=== PATIENT | male | born 1995 | race American Indian/Alaskan Native ===

== ENCOUNTER 2017-07-16 03:35 | Emergency (ER) | payer SELFPAY ==
[2017-07-16] MEDS ORDERED: Naproxen 250 MG Tab PO ONE (04:22)
[2017-07-16] MEDS ORDERED: Cyclobenzaprine 10 MG Tab PO ONE (04:22)
--- NOTE | 2017-07-16 05:20 | ER ---
DATE SEEN: 07/16/2017 CHIEF COMPLAINT: Back pain. HISTORY OF PRESENT ILLNESS: A 22-year-old male who was lifting a weight of unknown mass at work tonight and felt a sharp pain in the right side of the back. He continued working and the pain got worse. He rates it now about 6/10 with no radiation and he comes for evaluation. He has not taken anything to relieve the pain and there is no direct trauma. PAST MEDICAL HISTORY: Has been relatively healthy with no active medical problems. MEDICATIONS: Ibuprofen p.r.n. ALLERGIES: No known allergies. PHYSICAL EXAMINATION: GENERAL: He is well developed. VITAL SIGNS: Blood pressure is normal, pulse is 65, temperature 97.7. MUSCULOSKELETAL: No obvious swelling of the spine. No signs of trauma. He has full range of motion. There is paravertebral tenderness in the lumbar spine on the right. Straight leg raising test negative. NEUROLOGIC: He has no weakness on either side and his deep tendon reflexes are symmetric and brisk. IMPRESSION: Acute lumbar back pain, strain. PLAN: 1. Naproxen 500 mg b.i.d. 2. Flexeril 10 mg at night. 3. Restrictions were placed on his work not to lift, push, or pull more than 15 pounds and not to twist or bend until he is followed up on Monday. TIME SEEN: 0430 hours. /[id number] ELIDA/TRUONG
[2017-07-16 05:21] VITALS: BP 116/74
== END 2017-07-16 04:41 | disposition home or self-care (01) ==
LOC: FB.ED 03:35
DX: S39.012A Strain of muscle, fascia and tendon of lower back, initial encounter (principal); X50.9XXA Other and unspecified overexertion or strenuous movements or postures, initial encounter
CPT/HCPCS: 99000; 99283; A9270

== ENCOUNTER 2017-10-30 00:15 | Emergency (ER) | payer SELFPAY ==
--- NOTE | 2017-10-30 01:02 | EDM.PDOC ---
ED HPI GENERAL MEDICAL PROBLEM - General Stated Complaint: THROWING UP BLOOD Time Seen by Provider: 10/30/17 00:25 Source of Information: Reports: Patient History Limitations: Reports: No Limitations - History of Present Illness INITIAL COMMENTS - FREE TEXT/NARRATIVE: c/o N/V pt ate hamburger at 7p, went to bed at 10p, awoke 11:10p with slight N, had V in bathroom, thought there was blood no pain or nausea now has EGD x several without a dx is anxious with OCD traits does need to work in AM K a little low 2y ago, I offered to repeat his labs and he declined, stating he need to get sleep to get to work in the morning pt informed that he had no PUD, just some minor throat irritation PE neg, there was mucus with a few flecks of RBC in a cup - Related Data Allergies Allergy/AdvReac Type Severity Reaction Status Date / Time No Known Allergies Allergy Verified 05/20/16 22:47 Home Meds: Home Meds Ibuprofen [Ibuprofen] 600 mg PO ASDIRECTED 05/20/16 [History] Past Medical History - Past Health History Medical/Surgical History: Denies Medical/Surgical History Cardiovascular History: Reports: Other (See Below) Other Cardiovascular History: seen for palpations about 2 months ago Musculoskeletal History: Reports: Arthritis Neurological History: Reports: Migraines Dermatologic History: Reports: Eczema Other Dermatologic History: questionable eczema antecubital bilateral - Past Surgical History Musculoskeletal Surgical History: Reports: Other (See Below) Other Musculoskeletal Surgeries/Procedures:: back strain 5 months ago, arthritis of knees and hands Social & Family History - Family History Family Medical History: Noncontributory - Tobacco Use Smoking Status *Q: Never Smoker - Caffeine Use Caffeine Use: Reports: Soda Other Caffeine Use: 2-3 sodas a day - Recreational Drug Use Recreational Drug Use: No ED ROS GENERAL - Review of Systems Review Of Systems: See Below Constitutional: Reports: No Symptoms HEENT: Reports: No Symptoms Respiratory: Reports: No Symptoms Cardiovascular: Reports: No Symptoms Endocrine: Reports: No Symptoms GI/Abdominal: Reports: Nausea, Vomiting : Reports: No Symptoms Musculoskeletal: Reports: No Symptoms Skin: Reports: No Symptoms Neurological: Reports: No Symptoms Psychiatric: Reports: No Symptoms Hematologic/Lymphatic: Reports: No Symptoms Immunologic: Reports: No Symptoms ED EXAM, GI/ABD - Physical Exam Exam: See Below Exam Limited By: No Limitations General Appearance: Alert, WD/WN, No Apparent Distress, Anxious Ears: Normal External Exam Nose: Normal Inspection, Normal Mucosa, No Blood Throat/Mouth: Normal Inspection, Normal Lips, Normal Teeth, Normal Gums, Normal Oropharynx, Normal Voice, No Airway Compromise Head: Atraumatic, Normocephalic Neck: Normal Inspection, Supple, Non-Tender, Full Range of Motion Respiratory/Chest: No Respiratory Distress, Lungs Clear, Normal Breath Sounds, No Accessory Muscle Use, Chest Non-Tender Cardiovascular: Normal Peripheral Pulses, Regular Rate, Rhythm, No Edema, No Gallop, No JVD, No Murmur, No Rub GI/Abdominal Exam: Normal Bowel Sounds, Soft, Non-Tender, No Organomegaly, No Distention, No Mass, Pelvis Stable, Other (no epigastric tender) Back Exam: Normal Inspection, Full Range of Motion, NT Extremities: Normal Inspection, Normal Range of Motion, Non-Tender, Normal Capillary Refill, No Pedal Edema Neurological: Alert, Oriented, CN II-XII Intact, Normal Cognition, No Motor/ Sensory Deficits Psychiatric: Normal Affect, Normal Mood Skin Exam: Warm, Dry, Intact, Normal Color, No Rash Lymphatic: No Adenopathy Course - Orders/Labs/Meds Orders: Active Orders 24 hr Category Date Time Status CBC WITH AUTO DIFF [HEME] Stat Lab 10/30/17 00:51 Ordered COMPREHENSIVE METABOLIC PN,CMP [CHEM] Stat Lab 10/30/17 00:51 Ordered Departure - Departure Time of Disposition: 00:59 Disposition: Home, Self-Care 01 Condition: Good Clinical Impression: Throat burning, Nausea - Discharge Information Instructions: Nausea, Adult Referrals: PCP,None [Primary Care Provider] - Additional Instructions: Avoid alcohol. Eat 3 meals a day. Do not overeat. Do not skip meals. Take liquid antacid such as Maalox or Mylanta 2 teaspoons every 4 hours as needed for throat irritation. May drink 7-Up to soothe a sour stomach as needed. May work tomorrow. See your doctor later this week. Call your Physician or Return to Emergency Department if: * Your condition worsens in any way. * You develop fever greater than 100.4. * You have vomitting that does not stop with medications. * You have pain that is not controlled with medications. - My Orders Last 24 Hours: My Active Orders 10/30/17 00:51 CBC WITH AUTO DIFF [HEME] Stat COMPREHENSIVE METABOLIC PN,CMP [CHEM] Stat - Assessment/Plan Last 24 Hours: My Active Orders 10/30/17 00:51 CBC WITH AUTO DIFF [HEME] Stat COMPREHENSIVE METABOLIC PN,CMP [CHEM] Stat
[2017-10-30 01:58] VITALS: BP 124/61
== END 2017-10-30 01:10 | disposition home or self-care (01) ==
LOC: FB.ED 00:15
DX: R07.0 Pain in throat (principal); R11.2 Nausea with vomiting, unspecified
CPT/HCPCS: 99282

== ENCOUNTER 2018-04-10 09:49 | Emergency (ER) | payer SELFPAY ==
--- NOTE | 2018-04-10 10:18 | EDM.PDOC ---
ED HPI GENERAL MEDICAL PROBLEM - General Chief Complaint: Chest Pain Stated Complaint: CHEST PAINS Time Seen by Provider: 04/10/18 10:00 Source of Information: Reports: Patient History Limitations: Reports: No Limitations - History of Present Illness INITIAL COMMENTS - FREE TEXT/NARRATIVE: Miguel comes to [facility] ED from work this am with onset of L precordial chest pain. Sxs seem positional, more prominent with movement of L arm, aching, and nonradiating. There is no SOB, palpitations, GI upset or rash. He had a similar episode about a year ago, work up negative, and no sequelae. He has tried no meds. Chest Pain Score (Numeric/FACES): 4 - Related Data Allergies Allergy/AdvReac Type Severity Reaction Status Date / Time No Known Allergies Allergy Verified 04/10/18 10:01 Home Meds: Home Meds .Men's One-A-Day Multivitamin 1 tab PO DAILY 10/30/17 [History] Past Medical History - Past Health History Medical/Surgical History: Denies Medical/Surgical History Cardiovascular History: Reports: Other (See Below) Other Cardiovascular History: seen for palpations about 2 months ago Musculoskeletal History: Reports: Arthritis Neurological History: Reports: Migraines Dermatologic History: Reports: Eczema Other Dermatologic History: questionable eczema antecubital bilateral - Past Surgical History Musculoskeletal Surgical History: Reports: Other (See Below) Other Musculoskeletal Surgeries/Procedures:: back strain 5 months ago, arthritis of knees and hands Social & Family History - Family History Family Medical History: Noncontributory - Caffeine Use Caffeine Use: Reports: Soda Other Caffeine Use: 2-3 sodas a day ED ROS GENERAL - Review of Systems Review Of Systems: See Below Constitutional: Reports: No Symptoms HEENT: Reports: No Symptoms Respiratory: Reports: No Symptoms Cardiovascular: Reports: Chest Pain Endocrine: Reports: No Symptoms GI/Abdominal: Reports: No Symptoms : Reports: No Symptoms Musculoskeletal: Reports: No Symptoms Skin: Reports: No Symptoms Neurological: Reports: No Symptoms Psychiatric: Reports: No Symptoms Hematologic/Lymphatic: Reports: No Symptoms Immunologic: Reports: No Symptoms ED EXAM, GENERAL - Physical Exam Exam: See Below Exam Limited By: No Limitations General Appearance: Alert, WD/WN, No Apparent Distress Eye Exam: Bilateral Eye: EOMI, Normal Inspection, PERRL Ears: Normal External Exam Nose: Normal Inspection Throat/Mouth: Normal Inspection, Normal Oropharynx Head: Normocephalic Neck: Normal Inspection, Supple, Non-Tender, Full Range of Motion Respiratory/Chest: No Respiratory Distress, Lungs Clear, Normal Breath Sounds, No Accessory Muscle Use, Chest Non-Tender Cardiovascular: Regular Rate, Rhythm, No Edema, No Gallop, No JVD, No Murmur, No Rub GI/Abdominal: Normal Bowel Sounds, Soft, Non-Tender, No Organomegaly, No Distention, No Mass Back Exam: Normal Inspection Extremities: Normal Inspection, Normal Range of Motion, Non-Tender Neurological: Alert, Oriented, CN II-XII Intact, Normal Cognition, Normal Gait, No Motor/Sensory Deficits Psychiatric: Normal Affect, Normal Mood Skin Exam: Warm, Dry, Intact, Normal Color Lymphatic: No Adenopathy Course - Vital Signs Text/Narrative:: Following assessment at the [facility] ED, an ekg was normal for age. A 2 view chest x ray was also normal. Chest wall sxs appear likely, and will be treated symptomatically. Last Recorded V/S: Last Vital Signs Temp 36.7 C 04/10/18 09:49 Pulse 84 04/10/18 09:49 Resp 18 04/10/18 09:49 BP 116/62 04/10/18 09:49 Pulse Ox 99 04/10/18 09:49 - Orders/Labs/Meds Orders: Active Orders 24 hr Category Date Time Status Chest 2V [CR] Stat Exams 04/10/18 10:12 Ordered Departure - Departure Time of Disposition: 10:39 Disposition: Home, Self-Care 01 Condition: Good Clinical Impression: Atypical chest pain Referrals: PCP,None [Primary Care Provider] - Forms: ED Department Discharge - Problem List & Annotations (1) Atypical chest pain SNOMED Code(s): 917252697 Code(s): R07.89 - OTHER CHEST PAIN Status: Acute Current Visit: Yes Annotation/Comment:: NSAIDs or Tylenol for sx relief, activity as tolerated. - Problem List Review Problem List Initiated/Reviewed/Updated: Yes - My Orders Last 24 Hours: My Active Orders 04/10/18 10:12 Chest 2V [CR] Stat - Assessment/Plan Last 24 Hours: My Active Orders 04/10/18 10:12 Chest 2V [CR] Stat Plan: Follow up with PCP if needed.
[2018-04-10 11:21] VITALS: BP 118/59
--- NOTE | 2018-04-12 10:47 | CR ---
INDICATION: Atypical chest pain. CHEST, PA AND LATERAL VIEWS: FINDINGS: No comparison studies. The heart and lungs look negative. The bony thorax is intact. IMPRESSION: No acute abnormality is shown. I am not accounting for the patient s symptoms. MTDD
== END 2018-04-10 10:40 | disposition home or self-care (01) ==
LOC: FB.ED 09:49
DX: R07.89 Other chest pain (principal)
CPT/HCPCS: 71046; 93005; 99284